=== PATIENT | female | born 2000 | race Two or more races ===

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

== ENCOUNTER 2019-10-26 17:56 | Emergency (ER) | payer MEDICAID ==
[~2019-10-26] VITALS: Ht 152.4 cm; Wt 63.5 kg
[~2019-10-26 17:56] MED LIST: PREN-96 PO
[2019-10-26 18:18] VITALS: BP 119/70
[2019-10-26] MEDS ORDERED: cefTRIAXone SOD 1,000 MG VL IM ONE (21:00)
[2019-10-26] MEDS ORDERED: ACETAMINOPHEN/CODEINE#3 (300/30mg) TAB PO ONE (21:00)
== END 2019-10-26 21:35 | disposition home or self-care (01) ==
LOC: ER 17:56
DX: R11.2 Nausea with vomiting, unspecified (principal); T36.95XA Adverse effect of unspecified systemic antibiotic, initial encounter; Y92.89 Other specified places as the place of occurrence of the external cause
CPT/HCPCS: 96372; 99283; J0696

== ENCOUNTER 2021-10-26 23:25 | Emergency (ER) | payer MEDICAID ==
[~2021-10-26] VITALS: Ht 152.4 cm; Wt 79.8 kg
[2021-10-26 23:26] VITALS: BP 121/91
== END 2021-10-27 02:39 | disposition home or self-care (01) ==
LOC: ER 23:25
DX: R11.2 Nausea with vomiting, unspecified (principal); J45.909 Unspecified asthma, uncomplicated; Z30.430 Encounter for insertion of intrauterine contraceptive device